=== PATIENT | male | born 1995 ===

== ENCOUNTER 2021-03-05 00:29 | Emergency (ER) | payer OTHER ==
[2021-03-05] MEDS ORDERED: TETANUS,DIPH,PERTUSS(ACELL) VACCINE 0.5 ML SYRINGE IM ONE (00:53)
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
[2021-03-05 02:16] VITALS: BP 107/55
== END 2021-03-05 01:10 ==
LOC: ED 00:29
DX: S00.83XA Contusion of other part of head, initial encounter (principal); S00.03XA Contusion of scalp, initial encounter; Z13.30 Encounter for screening examination for mental health and behavioral disorders, unspecified; S09.90XA Unspecified injury of head, initial encounter; Y04.2XXA Assault by strike against or bumped into by another person, initial encounter; Y93.89 Activity, other specified; Y92.89 Other specified places as the place of occurrence of the external cause; Y99.8 Other external cause status
CPT/HCPCS: 70450; 70486; 90715